=== PATIENT | female | born 1950 ===

== ENCOUNTER 2017-11-16 14:56 | Inpatient (IN) | payer MEDICARE, BC, OTHER ==
[2017-11-16] MEDS ORDERED: MORPHINE SULFATE 10 MG/ML SOL IV PRN (16:31)
[2017-11-16] MEDS ORDERED: KETOROLAC TROMETHAMINE 30 MG/ML SOL IV PRN (16:33)
[2017-11-16 16:34] LABS: CALCIUM 7.9 mg/dl (8.5-10.1); CARBON DIOXIDE 30.8 mEq/L (21-32); POTASSIUM 3.4 mMol/L (3.5-5.1)
[2017-11-16 16:35] LABS: CREATININE 0.84 mg/dl (0.60-1.00)
[2017-11-16] MEDS: SODIUM CHLORIDE 0.9% FLUSH 10 ML SOL IV SCH ×2 (16:45→17:21)
[2017-11-16] MEDS ORDERED: VANCOMYCIN HYDROCHLORIDE 500 MG PDS IV ONE ×2 (16:47→20:19)
[2017-11-16] MEDS ORDERED: SODIUM CHLORIDE 0.9% 250 ML 250 ML IV ONE ×2 (16:49→20:21)
[2017-11-16] MEDS: VANCOMYCIN HCL 500 MG PDS 1,000 MG in SODIUM CHLORIDE 0.9% 250 ML 250 ML IV SCH (17:20)
[2017-11-16] MEDS: OXYCODONE HYDROCHLORIDE 5 MG TAB PO PRN (17:45)
[2017-11-17] MEDS ORDERED: VANCOMYCIN HYDROCHLORIDE 500 MG PDS IV ONE ×3 (01:11→23:16)
[2017-11-17] MEDS ORDERED: SODIUM CHLORIDE 0.9% 250 ML 250 ML IV ONE ×3 (01:11→23:16)
[2017-11-17] MEDS: SODIUM CHLORIDE 0.9% FLUSH 10 ML SOL IV SCH ×5 (01:38→23:35)
[2017-11-17] MEDS: VANCOMYCIN HCL 500 MG PDS 1,000 MG in SODIUM CHLORIDE 0.9% 250 ML 250 ML IV SCH ×2 (01:39→09:23)
[2017-11-17] MEDS: ACETAMINOPHEN 325 MG PO PRN ×3 (03:01→15:43)
[2017-11-17] MEDS ORDERED: LEVOTHYROXINE SODIUM 50 MCG TAB PO SCH (06:30)
[2017-11-17 07:12] LABS: CALCIUM 7.8 mg/dl (8.5-10.1); CARBON DIOXIDE 29.3 mEq/L (21-32); CREATININE 0.77 mg/dl (0.60-1.00)
[2017-11-17 07:20] LABS: BASOPHILS % (AUTO) 0 % (0-3); EOSINOPHILS % (AUTO) 0 % (0-9); HEMATOCRIT 34 % (35-47); HEMOGLOBIN 11.8 gm/dl (12.0-15.5); LYMPHOCYTES % (AUTO) 24.8 % (10-50); MEAN CORPUSCULAR HEMOGLOBIN 31.2 pg (27.0-32.0); MEAN CORPUSCULAR HGB CONC 34.7 gm/dl (32.0-36.0); MEAN CORPUSCULAR VOLUME 90 fL (81-99); MONOCYTES % (AUTO) 9.2 % (0-12); NEUTROPHILS % (AUTO) 65.3 % (37-80)
[2017-11-17] MEDS ORDERED: LEVOTHYROXINE SODIUM 50 MCG TAB ONE ×2 (08:59→09:00)
[2017-11-17 09:06] VITALS: RESP 16
[2017-11-17] MEDS: LEVOTHYROXINE SODIUM 137 MCG TAB PO SCH (09:21)
[2017-11-17] MEDS ORDERED: CEFTRIAXONE 1 GM PDS ONE ×2 (10:35→20:53)
[2017-11-17] MEDS ORDERED: SODIUM CHLORIDE 0.9% 50 ML 50 ML IV ONE ×2 (10:35→20:53)
[2017-11-17] MEDS: CEFTRIAXONE 1 GM PDS 1 GM in SODIUM CHLORIDE 0.9% 50 ML 50 ML IV SCH ×2 (10:43→20:59)
[2017-11-17] MEDS: OXYCODONE HYDROCHLORIDE 5 MG TAB PO PRN (21:07)
[2017-11-18] MEDS ORDERED: VANCOMYCIN HCL 500 MG PDS 1,000 MG in SODIUM CHLORIDE 0.9% 250 ML 250 ML IV SCH
[2017-11-18] MEDS: LEVOTHYROXINE SODIUM 137 MCG TAB PO SCH (06:55)
[2017-11-18 08:54] VITALS: BP 116/68; PULSE 56; TEMP 98; O2SAT 99
[2017-11-18] MEDS ORDERED: SODIUM CHLORIDE 0.9% 50 ML 50 ML IV ONE (09:04)
[2017-11-18] MEDS ORDERED: CEFTRIAXONE 1 GM PDS ONE (09:04)
[2017-11-18] MEDS: CEFTRIAXONE 1 GM PDS 1 GM in SODIUM CHLORIDE 0.9% 50 ML 50 ML IV SCH (09:31)
[2017-11-18] MEDS: SODIUM CHLORIDE 0.9% FLUSH 10 ML SOL IV SCH (09:32)
[2017-11-18] MEDS: ACETAMINOPHEN 325 MG PO PRN (09:41)
== END 2017-11-18 10:50 | disposition home or self-care (01) | DRG 603 ==
LOC: ACUTE CARE 15:43
PROVIDERS: ADMIT Family Medicine; ATTEND Family Medicine
DX: L03.211 Cellulitis of face (principal); E03.9 Hypothyroidism, unspecified; M81.0 Age-related osteoporosis without current pathological fracture
CPT/HCPCS: 36415; 70491; 80048; 85025; 87040; J0696; J1885; J3370; Q9967; A9270-GY